=== PATIENT | male | born 1940 | race Caucasian/White ===

== ENCOUNTER 2021-03-13 13:43 | Emergency (ER) | payer MEDICARE ==
[2021-03-13 14:31] LABS: HEMOGLOBIN 12.4 gm/dl (14.0-17.5); RED BLOOD COUNT 3.94 M/UL (4.20-5.50); WHITE BLOOD COUNT 8.5 K/UL (4.5-11.0)
[2021-03-13 14:52] LABS: BUN/CREATININE RATIO 17 (0-10)
== END 2021-03-13 16:14 | disposition other institution (70) ==
LOC: ER1 13:43
PROVIDERS: Emergency Medicine
DX: S37.051A Moderate laceration of right kidney, initial encounter (principal); S22.41XA Multiple fractures of ribs, right side, initial encounter for closed fracture; E11.9 Type 2 diabetes mellitus without complications; Z20.822 Contact with and (suspected) exposure to COVID-19; R31.0 Gross hematuria; I10 Essential (primary) hypertension; W19.XXXA Unspecified fall, initial encounter
CPT/HCPCS: 70450; 71045; 71260; 80053; 81001; 82550; 82553; 83874; 84484; 85025; 85610; 85730; 93005; 96374; 96375; 99284; J2270; J2405; J7030; Q9967; U0002